=== PATIENT | male | born 1970 | race Caucasian/White ===

== ENCOUNTER 2022-10-01 11:37 | Inpatient (IN) | payer MEDICAID ==
[~2022-10-01] VITALS: Ht 172.7 cm; Wt 90.7 kg
[2022-10-01] MEDS ORDERED: SODIUM CHLORIDE 0.9% 1000ML BAG (SEPSIS BOLUS) IV ONE (12:00)
[2022-10-01 12:16] LABS: BASOPHILS % 0.7 % (0.0-2.0); EOSINOPHILS % 1.3 % (0.0-5.0); HEMATOCRIT. 33.9 % (42.0-52.0); HEMOGLOBIN. 12.2 g/dL (14.0-18.0); LYMPHOCYTES % 22.3 % (20.0-50.0); MEAN CORPUSCULAR HEMOGLOBIN 33.7 pg (28.0-32.0); MEAN CORPUSCULAR VOLUME 94.1 fL (80.0-94.0); MEAN PLATELET VOLUME 7.3 fl (7.4-10.4); MONOCYTES % 10.7 % (2.0-8.0); PLATELET 249 x1000/uL (130-400); RED BLOOD CELL COUNT 3.61 mill/uL (4.7-6.1); RED CELL DISTRIBUTION WIDTH 12.7 % (11.6-14.6)
[2022-10-01 12:31] LABS: CHLORIDE 91 mEq/L (98-107)
[2022-10-01 12:34] LABS: PROTHROMBIN TIME 10.9 sec (9.6-11.0)
[2022-10-01] MEDS ORDERED: PIPERACILLIN/TAZ 3.375G PREMIX 50 ML IV NR (13:30)
[2022-10-01 14:48] LABS: CLARITY URINE CLEAR (CLEAR); COLOR URINE YELLOW (YELLOW); KETONES URINE NEGATIVE (NEGATIVE); LEUKOCYTE ESTERASE URINE NEGATIVE (NEGATIVE); NITRITE URINE NEGATIVE (NEGATIVE); OCCULT BLOOD URINE NEGATIVE (NEGATIVE); PH URINE 7.5 (4.5-8.0); PROTEIN URINE NEGATIVE (NEGATIVE); SPECIFIC GRAVITY URINE 1.007 (1.005-1.030); UROBILINOGEN URINE 0.2 E.U./dL (0.2-1.0)
[2022-10-01 22:20] VITALS: BP 113/65
[2022-10-02] VITALS: BP 113/67
[2022-10-02] MEDS ORDERED: SODIUM CHLORIDE 0.9% 1,000 ML IV SCH (01:15)
[2022-10-02] MEDS ORDERED: ONDANSETRON HCL 4MG/2ML INJ IV PRN (01:15)
[2022-10-02] MEDS ORDERED: HYDROCODONE/ACETAMINOPHEN 5/325MG TABLET PO PRN (01:15)
[2022-10-02] MEDS ORDERED: NALOXONE HCL 0.4MG/ML VIAL IV PRN (02:00)
[2022-10-02 04:00] VITALS: BP 109/70
[2022-10-02] MEDS ORDERED: PIPERACILLIN/TAZ 3.375G PREMIX 50 ML IV SCH (06:00)
[2022-10-02] MEDS: PIPERACILLIN/TAZOBACTAM 3.375G in DEXT 5% WATER 50ML IV SCH ×3 (06:47→14:12)
[2022-10-02 07:11] VITALS: BP 113/67
[2022-10-02 07:44] LABS: BASOPHILS % 0.6 % (0.0-2.0); EOSINOPHILS % 1.8 % (0.0-5.0); HEMATOCRIT. 36.7 % (42.0-52.0); HEMOGLOBIN. 13.2 g/dL (14.0-18.0); LYMPHOCYTES % 30.5 % (20.0-50.0); MEAN CORPUSCULAR HEMOGLOBIN 33.8 pg (28.0-32.0); MEAN PLATELET VOLUME 7.5 fl (7.4-10.4); NEUTROPHILS % 56.1 % (40.0-76.0); PLATELET 242 x1000/uL (130-400); RED CELL DISTRIBUTION WIDTH 12.8 % (11.6-14.6)
[2022-10-02 07:45] LABS: CHLORIDE 97 mEq/L (98-107)
[2022-10-02 08:00] VITALS: BP 97/61
[2022-10-02 12:00] VITALS: BP 110/73
== END 2022-10-02 16:15 | disposition left against medical advice (07) | DRG 422 ==
LOC: ER 12:18 → MICUSO 16:55 → EDBEDREQTM 16:58 → EDBEDREQ 16:58 → 7EST 10-02 00:15
PROVIDERS: ADMIT Internal Medicine; ATTEND Internal Medicine
DX: E86.0 Dehydration (principal); F17.200 Nicotine dependence, unspecified, uncomplicated; I10 Essential (primary) hypertension; Z53.29 Procedure and treatment not carried out because of patient's decision for other reasons; F20.9 Schizophrenia, unspecified; Z90.49 Acquired absence of other specified parts of digestive tract; Z88.5 Allergy status to narcotic agent
CPT/HCPCS: 36415; 71045; 74176; 80048; 80053; 81003; 83605; 84145; 84484; 85025; 93005; 93306; 99291; C1893; J2543; J7030; J7060

== ENCOUNTER 2022-10-17 10:14 | Inpatient (IN) | payer MEDICAID ==
[~2022-10-17] VITALS: Ht 177.8 cm; Wt 98.4 kg
[2022-10-17 11:11] LABS: BG BASE EXCESS 1.9 mmol/L (-2.0-2.0); BG CARBOXYHEMOGLOBIN 1.7 % (0.5-1.5); BG DEOXYHEMOGLOBIN 4.8 % (0.0-5.0); BG FRACTION INSPIRED OXYGEN 21; BG HCO3 ACT 26.2 mmol/L (22.0-26.0); BG METHEMOGLOBIN 0.3 % (0.0-1.5); BG OXYGEN SATURATION 95.1 % (92.0-98.5); BG OXYHEMOGLOBIN 93.2 % (94.0-97.0); BG PCO2 39.8 mmHg (35.0-45.0); BG PH 7.436 (7.350-7.450); BG PO2 71.5 mmHg (75.0-100.0); BG SAMPLE SITE LEFT BRACHIAL; BG TOTAL HEMOGLOBIN 13.4 g/dL (12.0-18.0); BG VENT MODE ROOM AIR
[2022-10-17 12:36] LABS: BASOPHILS % 0.5 % (0.0-2.0); EOSINOPHILS % 1.5 % (0.0-5.0); HEMATOCRIT. 37.5 % (42.0-52.0); HEMOGLOBIN. 13.1 g/dL (14.0-18.0); LYMPHOCYTES % 23.2 % (20.0-50.0); MEAN CORPUSCULAR HEMOGLOBIN 33.2 pg (28.0-32.0); MEAN CORPUSCULAR VOLUME 94.8 fL (80.0-94.0); MEAN PLATELET VOLUME 7.4 fl (7.4-10.4); MONOCYTES % 13.6 % (2.0-8.0); NEUTROPHILS % 61.2 % (40.0-76.0); PLATELET 288 x1000/uL (130-400); RED BLOOD CELL COUNT 3.95 mill/uL (4.7-6.1); RED CELL DISTRIBUTION WIDTH 12.5 % (11.6-14.6)
[2022-10-17 12:45] LABS: CHLORIDE 93 mEq/L (98-107); PROTHROMBIN TIME 10.5 sec (9.6-11.0)
[2022-10-17] MEDS ORDERED: CEFTRIAXONE 1GM PREMIX 50 ML IV ONE (13:00)
[2022-10-17] MEDS ORDERED: AZITHROMYCIN 500MG/250ML 250 ML IV ONE (13:00)
[2022-10-17 13:02] LABS: CLARITY URINE CLEAR (CLEAR); COLOR URINE YELLOW (YELLOW); KETONES URINE NEGATIVE (NEGATIVE); LEUKOCYTE ESTERASE URINE TRACE (NEGATIVE); NITRITE URINE NEGATIVE (NEGATIVE); OCCULT BLOOD URINE NEGATIVE (NEGATIVE); PROTEIN URINE NEGATIVE (NEGATIVE); SPECIFIC GRAVITY URINE 1.007 (1.005-1.030); UROBILINOGEN URINE 0.2 E.U./dL (0.2-1.0)
[2022-10-18 01:50] VITALS: BP 100/62
[2022-10-18 04:00] VITALS: BP 118/66
[2022-10-18] MEDS ORDERED: NON FORMULARY PATIENT HOME MED PO SCH (06:45)
[2022-10-18] MEDS ORDERED: NON FORMULARY PATIENT HOME MED XX SCH (06:45)
[2022-10-18] MEDS ORDERED: IPRATROPIUM/ALBUTEROL 0.5-3(2.5)MG/3ML NEB HHN PRN (06:45)
[2022-10-18] MEDS ORDERED: ACETAMINOPHEN 325MG TABLET PO PRN (07:00)
[2022-10-18] MEDS ORDERED: IPRATROPIUM BROMIDE (0.02%) 0.5MG/2.5ML NEB HHN PRN (07:30)
[2022-10-18] MEDS ORDERED: ALBUTEROL (0.083%) 2.5MG/3ML NEB HHN PRN (07:30)
[2022-10-18 08:10] VITALS: BP 108/55
[2022-10-18] MEDS ORDERED: GEMFIBROZIL 600MG TABLET PO SCH (08:10)
[2022-10-18] MEDS ORDERED: CHLORTHALIDONE 25MG TABLET PO SCH (09:00)
[2022-10-18] MEDS ORDERED: SERTRALINE HCL 50MG TABLET PO SCH (09:00)
[2022-10-18] MEDS ORDERED: RISPERIDONE 1MG TABLET PO SCH (09:00)
[2022-10-18] MEDS ORDERED: DIVALPROEX SODIUM 250MG ER TABLET PO SCH (09:00)
[2022-10-18] MEDS ORDERED: FLUOXETINE HCL 20MG CAPSULE PO SCH (09:00)
[2022-10-18] MEDS ORDERED: METOPROLOL SUCCINATE 50MG ER TABLET PO SCH (09:00)
[2022-10-18] MEDS ORDERED: AMLODIPINE 5MG TABLET PO SCH (09:00)
[2022-10-18] MEDS ORDERED: GABAPENTIN 300MG CAPSULE PO SCH (09:00)
[2022-10-18 11:20] LABS: CHLORIDE 98 mEq/L (98-107)
[2022-10-18] MEDS ORDERED: DIVALPROEX SODIUM 500MG ER TABLET PO SCH (11:20)
[2022-10-18 12:00] VITALS: BP 117/69
[2022-10-18 12:04] LABS: BASOPHILS % 0.7 % (0.0-2.0); EOSINOPHILS % 1.4 % (0.0-5.0); HEMATOCRIT. 35.3 % (42.0-52.0); HEMOGLOBIN. 12.3 g/dL (14.0-18.0); LYMPHOCYTES % 26.4 % (20.0-50.0); MEAN CORPUSCULAR HEMOGLOBIN 32.4 pg (28.0-32.0); MEAN PLATELET VOLUME 7.5 fl (7.4-10.4); MONOCYTES % 9.7 % (2.0-8.0); NEUTROPHILS % 61.8 % (40.0-76.0); PLATELET 263 x1000/uL (130-400); RED BLOOD CELL COUNT 3.79 mill/uL (4.7-6.1); RED CELL DISTRIBUTION WIDTH 12.7 % (11.6-14.6)
[2022-10-18] MEDS ORDERED: QUETIAPINE FUMARATE 50MG TABLET PO SCH (14:30)
[2022-10-18] MEDS ORDERED: LOSARTAN POTASSIUM 100 MG TABLET PO SCH (21:00)
== END 2022-10-18 14:42 | disposition left against medical advice (07) | DRG 207 ==
LOC: ER 10:27 → MICUSO 15:18 → EDBEDREQ 15:25 → EDBEDREQTM 15:25 → 7WST 10-18 02:03
PROVIDERS: ADMIT Internal Medicine; ATTEND Internal Medicine
DX: I95.9 Hypotension, unspecified (principal); N17.9 Acute kidney failure, unspecified; E86.0 Dehydration; F20.9 Schizophrenia, unspecified; I10 Essential (primary) hypertension; Z20.822 Contact with and (suspected) exposure to COVID-19; Z53.29 Procedure and treatment not carried out because of patient's decision for other reasons; Z91.018 Allergy to other foods
CPT/HCPCS: 36415; 36600; 71045; 80048; 80053; 81003; 82375; 82805; 83605; 83880; 84145; 84443; 84484; 85025; 87426; 87804; 93005; 99285; J0456; J0696